=== PATIENT | female | born 1970 | race Caucasian/White ===

== ENCOUNTER 2016-07-19 11:56 | Emergency (ER) | payer MEDICAID ==
[~2016-07-19] VITALS: Ht 165.1 cm; Wt 79.5 kg
[2016-07-19] MEDS ORDERED: SODIUM CHLORIDE 0.9% 1,000ML IVBOLUS ONE (13:00)
[2016-07-19] MEDS ORDERED: LORazepam 2 MG/ML, 1ML IVPush ONE (13:00)
[2016-07-19] MEDS ORDERED: SODIUM CHLORIDE FLUSH 10ML SYR IVF ONE (13:00)
[2016-07-19] MEDS ORDERED: ONDANSETRON 2MG/ML, 2ML IVPush ONE (13:00)
[2016-07-19 13:34] LABS: HEMOGLOBIN 13.3 g/dL (11.7-16.4)
[2016-07-19 13:45] LABS: ASPARTATE AMINO TRANSFERASE 10 U/L (15-37); BLOOD UREA NITROGEN 13 mg/dL (7-18)
[2016-07-19 13:52] LABS: IS PT STATUS REG ER OR PRE ER? YES
[2016-07-19 16:11] LABS: PATH.CAST-FLAG NOT PRESENT; SPERM-FLAG NOT PRESENT; SRC-FLAG NOT PRESENT; XTAL-FLAG NOT PRESENT; YLC-FLAG NOT PRESENT
[2016-07-19] MEDS ORDERED: SERT100T PO (16:27)
[2016-07-19] MEDS ORDERED: ALBU0.63 NEB (16:27)
[2016-07-19] MEDS ORDERED: SERT50TA PO (16:27)
[2016-07-19] MEDS ORDERED: LEVO75TA5 PO (16:27)
[2016-07-19] MEDS ORDERED: OMEP-110 PO (16:27)
[2016-07-19 17:45] VITALS: BP 99/62
== END 2016-07-19 17:48 | disposition home or self-care (01) ==
LOC: ED 15:23
DX: R51 Headache (principal); R55 Syncope and collapse; E03.9 Hypothyroidism, unspecified; K21.9 Gastro-esophageal reflux disease without esophagitis; R07.9 Chest pain, unspecified; R11.0 Nausea
CPT/HCPCS: 36415; 70450; 71010; 80053; 81001; 84439; 84443; 84484; 84703; 85025; 93005; 96360; 96361; 99285; J7030